=== PATIENT | female | born 2000 | race Caucasian/White ===

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

== ENCOUNTER 2022-10-02 14:00 | Outpatient (CLI) | payer OTHER ==
[~2022-10-02] VITALS: Ht 162.6 cm; Wt 84.8 kg
[2022-10-02] MEDS ORDERED: PANT40TA52 PO (15:05)
[2022-10-02] MEDS ORDERED: NORG1TAB15 PO (15:05)
== END 2022-10-02 15:27 | disposition home or self-care (01) ==
LOC: PREOP 14:00
PROVIDERS: ATTEND Surgery
DX: Z01.818 Encounter for other preprocedural examination (principal)

== ENCOUNTER 2022-10-04 11:25 | Day surgery (SDC) | payer BC, OTHER ==
[~2022-10-04] VITALS: Ht 162.6 cm; Wt 84.8 kg
[2022-10-04] VITALS (11 sets, daily range): BP systolic 105–129; BP diastolic 52–93
[~2022-10-04 11:25] MED LIST changes: +NORG1TAB15 PO; +PANT40TA52 PO
[2022-10-04] MEDS ORDERED: BUP/EPI 0.5% 1:200,000 (SENSORCAINE) 30 ML VIAL ONE (11:28)
[2022-10-04] MEDS ORDERED: SEVOFLURANE (ULTANE) 15 ML INHAL SOLN ONE ×2 (11:51→13:31)
[2022-10-04] MEDS ORDERED: proPOfol 200 MG/20 ML (DIPRIVAN) VIAL IV ONE (11:51)
[2022-10-04] MEDS ORDERED: MIDAZOLAM 2 MG/2 ML (VERSED) VIAL ONE (11:51)
[2022-10-04] MEDS ORDERED: LIDOCAINE PF 2% 5 ML (XYLOCAINE) VIAL ONE (11:51)
[2022-10-04] MEDS ORDERED: ONDANSETRON 4 MG/2 ML (SDV) Z0FRAN ONE ×2 (11:51→13:33)
[2022-10-04] MEDS ORDERED: fentaNYL INJ 100 MCG/2 ML AMP ONE ×2 (11:51→13:44)
[2022-10-04] MEDS ORDERED: ceFAZolin INJECTION 2,000 MG ONE (12:03)
[2022-10-04] MEDS ORDERED: NS (IVPB) 50 ML ONE (12:03)
--- NOTE | 2022-10-04 12:09 | Progress Note-Pre Operative ---
Pre-Operative Progress Note Date H&P Reviewed: Oct 04, 2022 Time H&P Reviewed: 12:09 History & Physical: H&P Reviewed, Patient Examed, No changes noted Pre-Operative Diagnosis: Biliary Dyskinesia MARGARITA VERDUGO APRN Oct 04, 2022 12:09
[2022-10-04] MEDS ORDERED: HYDR-3817 PO (12:10)
--- NOTE | 2022-10-04 12:11 | Discharge Inst-Surgical ---
D/C Lap Instructions-KIDO Reconcile Patient Problems Problems Reviewed?: Yes New, Converted, or Re-Newed RX: RX on Chart Follow Up Appt in 2 weeks Activity as tolerated No driving for 24 hours No driving while on pain medications Incentive Spirometry use every 2 hours while awake Regular Diet Symptoms to Report: Fever over 101 degree F, Nausea/Vomiting Infection Signs and Symptoms to report: Increased redness, Foul odor of wound, Increased drainage Bathing instructions: May shower Operative Area Clean/Dry; Keep incision clean/dry If any problems/questions: Contact your physician or go to Emergency Room MARGARITA VERDUGO APRN Oct 04, 2022 12:11
[2022-10-04] MEDS: LIDOCAINE/EPI 1%-1:100,000 (XYLOCAINE) 20ML ONE ×2 (12:12→12:35)
[2022-10-04] MEDS ORDERED: ACETAMINOPHEN 325 MG TABLET PO PRN (12:15)
[2022-10-04] MEDS ORDERED: ONDANSETRON 4 MG/2 ML (SDV) Z0FRAN IVP PRN ×2 (12:15→13:30)
[2022-10-04] MEDS ORDERED: morphine INJ 10 MG/ML 1ML (SYR OR VIAL) IVP PRN (12:15)
[2022-10-04] MEDS ORDERED: LACTATED RINGERS 1,000 ML IV PRN (12:15)
[2022-10-04] MEDS ORDERED: ceFAZolin INJECTION 2,000 MG in NS (IVPB) 50 ML IV ONE (12:15)
[2022-10-04] MEDS ORDERED: HYDROcodone/APAP 5 MG/325 MG (LORTAB) TAB PO ONE (12:15)
[2022-10-04] MEDS ORDERED: BUP/EPI 0.5% 1:200,000 (SENSORCAINE) 30 ML VIAL INJ ONE (12:48)
[2022-10-04] MEDS ORDERED: EPINEPHrine INJECTION 1 MG/ML AMP ONE (13:02)
[2022-10-04] MEDS ORDERED: morphine INJ 10 MG/ML 1ML (SYR OR VIAL) ONE (13:07)
--- NOTE | 2022-10-04 13:15 | Progress Note-Post Operative ---
Post-Operative Progess Note Surgeon (s)/Assistant Community Manager (s) Surgeon YENI MARIANO MD Assistant Community Manager: eva ovalle [employer] SALESPERSON Pre-Operative Diagnosis Biliary Dyskinesia Post-Operative Diagnosis same Procedure & Operative Findings Date of Procedure 10/04/22 Procedure Performed/Findings laparoscopic cholecystectomy Anesthesia Type mac Estimated Blood Loss Estimated blood loss (mL): minimal Specimens/Packing Specimens Removed gallbladder YENI MARIANO MD Oct 04, 2022 13:15
--- NOTE | 2022-10-04 13:25 | Anesthesia-General Post-Op ---
General Patient Condition Mental Status/LOC: Same as Preop Cardiovascular: Satisfactory Nausea/Vomiting: Absent Respiratory: Satisfactory Pain: Controlled Complications: Absent Post Op Complications Complications None Follow Up Care/Instructions Patient Instructions None needed. Anesthesia/Patient Condition Patient Condition Patient is doing well, no complaints, stable vital signs, no apparent adverse anesthesia problems. No complications reported per nursing. SHIVA KAPLAN CRNA Oct 04, 2022 13:25
[2022-10-04] MEDS ORDERED: MEPERIDINE (DEMEROL) INJ 50 MG/ML IVP ONE (13:30)
[2022-10-04] MEDS ORDERED: fentaNYL INJ 100 MCG/2 ML AMP IVP ONE (13:30)
[2022-10-04] MEDS ORDERED: morphine INJ 10 MG/ML 1ML (SYR OR VIAL) IVP ONE (13:30)
[2022-10-04] MEDS ORDERED: ROCURONIUM 50 MG/5 ML (ZEMURON) VIAL IV ONE (13:31)
[2022-10-04] MEDS ORDERED: MEPERIDINE (DEMEROL) INJ 50 MG/ML ONE (13:33)
[2022-10-04] MEDS ORDERED: HYDROcodone/APAP 5 MG/325 MG (LORTAB) TAB ONE (16:18)
--- NOTE | 2022-10-04 20:35 | OPERATIVE REPORT ---
DATE OF SERVICE: 10/04/2022 PREOPERATIVE DIAGNOSIS: Symptomatic biliary dyskinesia. POSTOPERATIVE DIAGNOSIS: Symptomatic biliary dyskinesia. PROCEDURE: Laparoscopic cholecystectomy. SURGEON: Yeni Mariano MD CASINO PORTER: Sean Story APRN ANESTHESIA: General endotracheal. ESTIMATED BLOOD LOSS: Minimal. FINDINGS: Distended gallbladder, no gallbladder wall thickening, no stones. DISPOSITION: The patient tolerated the procedure well. INDICATIONS: The patient is a 21-year-old female who has had a 1-year history of what she initially thought was acid indigestion; however, this progressed to abdominal bloating, distention, nausea and vomiting. She states that this would normally occur after eating foods. She underwent an ultrasound, which did not show any gallstones and then underwent a HIDA scan, which did show the lower end of normal ejection fraction of 40%. However, she did have reproduction of symptoms upon administration of the Kinevac analogue with nausea and abdominal bloating that day. This is consistent with symptomatic biliary dyskinesia. DESCRIPTION OF PROCEDURE: The patient was brought to the operating room, laid supine on the table. After adequate IV pain and sedative medications and general endotracheal intubation, the abdomen was prepped and draped in standard surgical fashion. A 0.5% Marcaine with epinephrine was used to anesthetize the overlying skin in the left upper abdominal quadrant and transverse skin incision made using a #15 blade. An 0 silk suture was applied to the medial aspect of the incision for retraction and Veress needle inserted with a low opening pressure of 0 mmHg. The abdomen was then insufflated to 15 mmHg pressure. The Veress needle removed and a 5 mm XL trocar placed followed by a 5 mm 45-degree angle laparoscope visualized the peritoneal cavity. A 4-quadrant abdominal exploration was performed. There was slightly distended gallbladder, no gallbladder wall thickening. Liver, small bowel, omentum appeared normal. Under direct visualization, we then proceeded to place a supraumbilical 10 mm port after the skin and peritoneal lining were anesthetized using 0.5% Marcaine with epinephrine and a transverse skin incision made using a #15 blade. In a similar manner, right upper abdominal quadrant 5 mm port was placed. The patient was then placed in reverse Trendelenburg position as well as plane right side up, left side down. The fundus of the gallbladder was then retracted anteriorly and superiorly. The hepatoduodenal ligament was then dissected bluntly as well as using electrocautery using the hook instrument as well as [place] dissector. The entire critical view of safety was identified including the triangle of Calot as well as the cystic duct and artery as the only 2 structures going into the gallbladder as well as the cystic plate behind the proximal gallbladder. A timeout was then taken and the cystic duct and artery were then clipped proximally and distally and cut with EndoShears. The gallbladder was then dissected off of the liver bed using cautery on the hook instrument with visualization of good hemostasis as well as no leaking ducts of Luschka. The gallbladder was removed through the 10 mm port site using an EndoCatch bag. The 10 mm port site fascia, peritoneal lining were then closed under direct visualization using a Wes-Bennett device and 0 Vicryl suture. The abdomen was then desufflated and the remaining ports were removed. All skin incisions were closed using 4-0 Monocryl running subcuticular sutures. Wounds were then cleaned and covered with Dermabond. The patient tolerated the procedure well. We will start IV and oral pain medication as well as a clear liquid diet. Once she is tolerating clears, has good pain control with oral pain medications, ambulating well, we will discharge her home where she will be instructed to do no heavy lifting or exertion for the next 2 weeks. Job ID: [id number] DocumentID: [id number] Dictated Date: 10/04/2022 13:24:47 Scrap Drop Operator Date: 10/04/2022 20:32:00 Dictated By: YENI MARIANO MD
== END 2022-10-04 16:25 | disposition home or self-care (01) ==
LOC: SDC 11:25
PROVIDERS: ATTEND Surgery
DX: K82.8 Other specified diseases of gallbladder (principal); K81.1 Chronic cholecystitis
CPT/HCPCS: 84703; 87081

== ENCOUNTER 2023-01-02 05:48 | Outpatient (CLI) | payer OTHER ==
[~2023-01-02] VITALS: Ht 162.6 cm; Wt 82.0 kg
[~2023-01-02 05:48] MED LIST changes: +HYDR-3817 PO
[2023-01-02] MEDS ORDERED: NORG1TAB15 PO (08:56)
== END 2023-01-02 09:03 | disposition home or self-care (01) ==
LOC: PREOP 05:48
PROVIDERS: ATTEND Surgery
DX: Z01.818 Encounter for other preprocedural examination (principal)

== ENCOUNTER 2023-01-09 10:24 | Day surgery (SDC) | payer OTHER ==
[~2023-01-09] VITALS: Ht 162 cm; Wt 82.0 kg
[2023-01-09] MEDS ORDERED: LACTATED RINGERS 1,000 ML IV STA (10:28)
[2023-01-09] MEDS ORDERED: LIDOCAINE JELLY 2% 6 ML SYRINGE MM PRN (10:30)
[2023-01-09] MEDS ORDERED: HURRICAINE EXT TUBE (BENZOCAINE) XX PRN (10:30)
[2023-01-09 10:55] VITALS: BP 112/75
[2023-01-09] MEDS ORDERED: LIDOCAINE JELLY 2% 6 ML SYRINGE ONE (10:56)
[2023-01-09] MEDS ORDERED: proPOfol 200 MG/20 ML (DIPRIVAN) VIAL IV ONE (11:40)
[2023-01-09] MEDS ORDERED: MIDAZOLAM 2 MG/2 ML (VERSED) VIAL ONE (11:40)
--- NOTE | 2023-01-09 11:47 | Progress Note-Pre Operative ---
Pre-Operative Progress Note Date of Available H&P: Jan 09, 2023 Date H&P Reviewed: Jan 09, 2023 Time H&P Reviewed: 11:00 History & Physical: No changes noted Pre-Operative Diagnosis: khushbu MERCADO abd pain YENI MARIANO MD Jan 09, 2023 11:47
--- NOTE | 2023-01-09 11:48 | Discharge Inst-Surgical ---
D/C Lap Instructions-KIDO New, Converted, or Re-Newed RX: RX on Chart Follow Up Activity as tolerated High Fiber Diet 25g or more per day Avoid Alcohol, Caffeine, Spicy [place] and Acid foods. Drink 64 fluid oz or more of fluids per day. Symptoms to Report: Fever over 101 degree F, Nausea/Vomiting If any problems/questions: Contact your physician or go to Emergency Room YENI MARIANO MD Jan 09, 2023 11:48
[2023-01-09] MEDS ORDERED: ONDANSETRON 4 MG (ZOFRAN) ORAL DISSOLVE TAB PO PRN (12:00)
[2023-01-09] MEDS ORDERED: ONDANSETRON 4 MG/2 ML (SDV) Z0FRAN IVP PRN (12:00)
[2023-01-09 12:13] VITALS: BP 79/46
[2023-01-09 12:18] VITALS: BP 87/53
[2023-01-09 12:23] VITALS: BP 89/51
--- NOTE | 2023-01-09 12:27 | Progress Note-Post Operative ---
Post-Operative Progess Note Surgeon (s)/Manager Talent Acquisition (s) Surgeon YENI MARIANO MD Manager Talent Acquisition: none Pre-Operative Diagnosis persisent RUQ abd pain Post-Operative Diagnosis reflux esophagitis(grade B), small HH(1.5cm), moderate gastritis and duodenitis. Procedure & Operative Findings Date of Procedure 01/09/23 Procedure Performed/Findings EGD with bx Anesthesia Type mac Estimated Blood Loss Estimated blood loss (mL): minimal Specimens/Packing Specimens Removed duodenum, antrum, ge jxn YENI MARIANO MD Jan 09, 2023 12:27
[2023-01-09 12:30] VITALS: BP 102/66
[2023-01-09 12:48] VITALS: BP 102/66
--- NOTE | 2023-01-09 14:48 | Anesthesia-General Post-Op ---
MAC Patient Condition Mental Status/LOC: Same as Preop Cardiovascular: Satisfactory Nausea/Vomiting: Absent Respiratory: Satisfactory Pain: Controlled Complications: Absent Post Op Complications Complications None Follow Up Care/Instructions Patient Instructions None needed. Anesthesiology Discharge Order Discharge Order Patient is doing well, no complaints, stable vital signs, no apparent adverse anesthesia problems. No complications reported per nursing. BENNY ALEGRE CRNA Jan 09, 2023 14:48
--- NOTE | 2023-01-09 16:40 | OPERATIVE REPORT ---
DATE OF SERVICE: 01/09/2023 ATTENDING PRIMARY YARN DUMPER: Elidia Joya APRN PREOPERATIVE DIAGNOSIS: Persistent right upper abdominal quadrant and epigastric pain. POSTOPERATIVE DIAGNOSES: Reflux esophagitis, Carroll grade B. Small hiatal hernia, 1.5 cm in size. Moderate gastritis, moderate duodenitis with no formal ulcerations. PROCEDURE: EGD with biopsy. SURGEON: Yeni Mariano MD ANESTHESIA: Monitored anesthesia care. ESTIMATED BLOOD LOSS: Minimal. FINDINGS: Reflux esophagitis, Carroll grade B. Small hiatal hernia, 1.5 cm in size. Moderate gastritis, moderate duodenitis with no formal ulcerations. DISPOSITION: The patient tolerated the procedure well. INDICATIONS: The patient is a 22-year-old female who has been experiencing a 1-year history of epigastric and right upper abdominal quadrant pain which was described as a burning sensation as well as crampiness. She also developed abdominal bloating and distention and nausea, vomiting, and states that this would normally occur after eating meals. She then underwent an ultrasound which did not show any gallstones and this was followed by a HIDA scan which showed a normal ejection fraction of 40%. However, after given the Kinevac analogue, she did have reproduction of symptoms with abdominal distention and nausea as well as the abdominal pain, consistent with a biliary dyskinesia. On 10/04/2022, she underwent a laparoscopic cholecystectomy. For several weeks, she felt better; however, she feels that she had some recurrence of nausea; however, no vomiting, and has had some recurrent pain in the epigastric region as well as the right upper abdominal quadrant. DESCRIPTION OF PROCEDURE: The patient was brought to the endoscopy suite and laid in the left lateral decubitus position. After adequate IV pain and sedative medications and monitored anesthesia care, the mouthpiece was applied. The endoscope was placed in the mouth, visualizing the pharynx and hypopharyngeal region. Vocal cords, epiglottis, and vallecula identified and appeared to be normal. The endoscope was then gently intubated into the esophageal opening and esophagus insufflated. The endoscope was then advanced through the first, second, and third portions of esophagus at the level of the GE junction. A reflux esophagitis, Carroll grade B, identified. No ulcers or strictures identified. A biopsy was taken with forceps with visualization of good hemostasis. The endoscope was then advanced into the stomach and the endoscope retroflexed, visualizing a small hiatal hernia, approximately 1.5 cm in size. There was a moderate gastritis, more towards the stomach antrum and moderate duodenitis was also identified. Biopsies were taken of the duodenum and antrum with forceps with visualization of good hemostasis. The endoscope was then slowly withdrawn while taking a second look and suctioning of residual air with no additional findings. The patient tolerated the procedure well. We will recommend the necessary lifestyle and dietary accommodation which would include small and more frequent meals, avoidance of eating at night as well as head elevation while lying supine. She also needs to avoid caffeinated beverages, spicy, greasy, and acidic foods, and we will also start her on Protonix 40 mg daily as well as Carafate 1 gram q.i.d. for the next 2 weeks and then also on a p.r.n. basis. Job ID: [id number] DocumentID: [id number] Dictated Date: 01/09/2023 12:22:38 Drug Department Worker Date: 01/09/2023 16:24:00 Dictated By: YENI MARIANO MD
== END 2023-01-09 12:55 | disposition home or self-care (01) ==
LOC: ENDO 10:24
PROVIDERS: ATTEND Surgery
DX: K21.00 Gastro-esophageal reflux disease with esophagitis, without bleeding (principal); K44.9 Diaphragmatic hernia without obstruction or gangrene; K29.70 Gastritis, unspecified, without bleeding; K29.80 Duodenitis without bleeding
CPT/HCPCS: 84703